=== PATIENT | female | born 1935 | race Caucasian/White ===

== ENCOUNTER 2018-06-20 05:32 | Inpatient (IN) | payer MEDICARE ==
[2018-06-12 15:08] LABS: BASOPHILS % (AUTO) 0.4 % (0-1); EOSINOPHILS # (AUTO) 0.3 X10'3 (0-0.9); EOSINOPHILS % (AUTO) 4.6 % (0-6); LYMPHOCYTES # (AUTO) 1.6 X10'3 (1.1-4.8); LYMPHOCYTES % (AUTO) 25.8 % (21-51); MEAN CORPUSCULAR HEMOGLOBIN 30.9 PG (27.0-31.0); MEAN CORPUSCULAR HGB CONC 32.2 % (33.0-36.5); MEAN PLATELET VOLUME 7.9 FL (7.4-10.4); MONOCYTES # (AUTO) 0.3 X10'3 (0-0.9); MONOCYTES % (AUTO) 4.2 % (2-12); NEUTROPHILS # (AUTO) 4.1 X10'3 (1.8-7.7); PRE OP HEMOGLOBIN 13.2 g/dL (12.0-16.0); PRE OP PLATELET COUNT 280 X10'3 (140-440); RED BLOOD COUNT 4.27 X10'6 (4.20-5.60); RED CELL DISTRIBUTION WIDTH 15.3 % (11.5-14.5)
[2018-06-12 15:39] LABS: ALBUMIN 3.5 G/DL (3.4-5.0); ALBUMIN/GLOBULIN RATIO 0.9 (1.1-1.5); ALKALINE PHOSPHATASE 99 IU/L (46-116); BLOOD UREA NITROGEN 18 MG/DL (7-18); BUN/CREATININE RATIO 16.2 (6.6-38.0); CALCIUM 8.4 MG/DL (8.5-10.1); CHLORIDE 106 MMOL/L (99-107); CREATININE 1.11 MG/DL (0.40-0.90); PRE OP ALT 21 U/L (30-65); PRE OP ANION GAP 8 (8-16); PRE OP AST 17 U/L (10-37); PRE OP BILIRUB, TOTAL 0.4 MG/DL (0.0-1.0); PRE OP GLUCOSE 120 MG/DL (70-104); PRE OP SODIUM 144 MMOL/L (135-145); TOTAL CARBON DIOXIDE 30.2 MMOL/L (24-32); TOTAL PROTEIN 7.2 G/DL (6.4-8.2); eGFR 47 ML/MIN
[2018-06-12 15:40] LABS: PRE OP POTASSIUM 3.1 MMOL/L (3.4-5.1)
[2018-06-20] VITALS (21 sets, daily range): BP systolic 104–139; BP diastolic 66–86
[~2018-06-20] VITALS: Ht 175.3 cm; Wt 104.3 kg
[~2018-06-20 05:32] MED LIST: ALLO300T2 PO; ALPR0.5T8 PO; CITA40TA11 PO; LEVO50TA8 PO; OMEP40CA37 PO; PRAV80TA3 PO; TRAM50TA2 PO; acetaminophen 325mg tablet PO ONE; cefazolin/dext.iso 2gm/100 ML IV ONE; famotidine 20mg tablet PO ONE; gabapentin 300mg capsule PO ONE; metoclopramide 5 mg/ml inj IV ONE; ringers solution, lacted 1,000 ML IV SCH; tranexamic acid inj. 1,000 MG in normal saline 100 ML IV ONE; vancomycin inj 1,500 MG in normal saline 300ml IV soln IV ONE
[2018-06-20] MEDS ORDERED: Thrombin (Bovine) 5,000 unit vial TP ONE (06:44)
[2018-06-20] MEDS ORDERED: vancomycin 1,000mg inj ONE (06:44)
[2018-06-20] MEDS ORDERED: ROPIVAcaine 0.5% (5mg/ml) 30ml vial ONE (07:19)
[2018-06-20] MEDS ORDERED: cloNIDine hcl/PF 100mcg/ml inj ONE (07:19)
[2018-06-20] MEDS ORDERED: fentaNYL/PF 50MCG/1 ML 2ML syringe ONE (07:26)
[2018-06-20] MEDS ORDERED: propofol inj 20 ML IV ONE (07:27)
[2018-06-20] MEDS ORDERED: ondansetron/PF 4mg/2ml inj ONE (07:27)
[2018-06-20] MEDS ORDERED: LIDOcaine 2% (20mg/ml) 5ml vial ONE (07:27)
[2018-06-20] MEDS ORDERED: dexamethasone sod phosphate 4mg/ml inj. ONE (07:27)
[2018-06-20] MEDS ORDERED: midazolam 2 mg/2 ml injection ONE (07:27)
[2018-06-20] MEDS ORDERED: ringers solution, lacted 1,000 ML IV SCH (07:34)
[2018-06-20] MEDS ORDERED: labetalol 20mg/4ml (5mg/ml) syringe IV PRN (07:35)
[2018-06-20] MEDS ORDERED: ondansetron/PF 4mg/2ml inj IV PRN ×2 (07:35→10:45)
[2018-06-20] MEDS ORDERED: hydrALAZINE 20mg/ml inj. IV PRN (07:35)
[2018-06-20] MEDS ORDERED: morphine 4 MG/ML inj SYRINge IV PRN ×2 (07:35)
[2018-06-20] MEDS ORDERED: fentaNYL/PF 50MCG/1 ML 2ML syringe IV PRN ×2 (07:35)
[2018-06-20] MEDS ORDERED: sevoflurane 250ml liquid IH ONE (07:58)
[2018-06-20] MEDS ORDERED: ePHEDrine 50MG/ML INJ. ONE (08:38)
[2018-06-20] MEDS ORDERED: calcium chloride 100 MG/1 ML inj IV ONE (09:52)
[2018-06-20] MEDS ORDERED: albumin (Human) 5% 250ml 250 ML IV ONE (09:53)
[2018-06-20] MEDS ORDERED: morphine 10mg/ml inj. ONE (10:29)
--- NOTE | 2018-06-20 10:40 | NUR ---
[facility] accompanied by Anesthesiologist DR GROSS and report given by Anesthesiologist. PT DROWSY, RIGHT SHOULDER W/DRSG, ICE PACK, SHOULDER WRAP AND SLING, CDI, PT DENIES PAIN, FINGERS PWD, PTS SA02 86%, DR GROSS AWARE, ORDERS TO PLACE ON BIPAP IF SA02 LESS THAN 85%. Addendum: 06/20/18 at 1113 by Aurora Potts RN Amended: Links added.
[2018-06-20] MEDS ORDERED: acetaminophen 325mg tablet PO PRN (10:45)
[2018-06-20] MEDS ORDERED: bisacodyl 10mg suppository rectal RC PRN (10:45)
[2018-06-20] MEDS ORDERED: diphenhydrAMINE 25mg capsule PO PRN ×2 (10:45)
[2018-06-20] MEDS ORDERED: magnesium hydroxide 30ml (MOM) UD suspension PO PRN (10:45)
[2018-06-20] MEDS ORDERED: HYDROmorphone inj. 0.5 MG/0.5 ML DISP.SYRIN IV PRN (10:45)
[2018-06-20] MEDS: ROPIVACAINE HCL/PF PAIN PUMP 400 ML IJ SCH (11:33)
--- NOTE | 2018-06-20 12:20 | NUR ---
Report called to receiving nurse. Transferred PT IN STABLE CONDITION via BED, ON TELE #1 AND 02 TO ROOM 4013B, RECEIVING RN AT BEDSIDE TO RECEIVE PT, BLL, SIDE RAILS UP X 2, CALL LIGHT GIVEN, FRIEND AT BEDSIDE. 2 BAGS OF PT Belongings SENT W/PT TO HER ROOM. Special Issues communicated to receiving nurse. YES. Addendum: 06/20/18 at 1232 by Aurora Potts RN Amended: Links added.
[2018-06-20] MEDS: acetaminophen 325mg tablet PO SCH ×2 (13:31→20:57)
[2018-06-20] MEDS: gabapentin 300mg capsule PO SCH ×2 (13:31→20:55)
[2018-06-20] MEDS ORDERED: tranexamic acid inj. 1,000 MG in normal saline 100ml IV soln 100 ML IV ONE (14:00)
[2018-06-20] MEDS: ceFAZolin 1GM/D5W- ADD-VANTAGE 50 ML IV SCH (15:40)
[2018-06-20] MEDS ORDERED: traMADol 50MG tablet PO PRN (17:10)
[2018-06-20 19:30] LABS: ISTAT CREATININE 1.2 mg/dL (0.6-1.1); ISTAT HGB 12.9 g/dl (12.0-16.0); ISTAT IONIZED CALCIUM 1.16 mmol/L (1.03-1.32); ISTAT K 3.3 mmol/L (3.5-5.1); POC BUN/CREATININE RATIO 13.3 (6.6-38.0)
[2018-06-20] MEDS ORDERED: vancomycin/NS 1 GM ADD-VANTAGE 250 ML IV SCH (20:00)
[2018-06-20] MEDS: sennosides 8.6mg tablet PO SCH (21:00)
[2018-06-21] MEDS: ceFAZolin 1GM/D5W- ADD-VANTAGE 50 ML IV SCH (00:27)
[2018-06-21] MEDS: ALPRAZolam 0.5mg tablet PO SCH ×4 (00:32→23:02)
[2018-06-21 02:00] VITALS: BP 132/85
[2018-06-21] MEDS: acetaminophen 325mg tablet PO SCH ×4 (02:00→19:51)
[2018-06-21 06:00] VITALS: BP 152/82
--- NOTE | 2018-06-21 07:02 | NUR ---
Patient in room ORTHO 4013. I have received report from Vivi CLEMENTE and had the opportunity to ask questions and assume patient care.
[2018-06-21 07:53] LABS: ANION GAP 11 (8-16); CHLORIDE 105 MMOL/L (99-107); POTASSIUM 4.4 MMOL/L (3.5-5.1); SODIUM 141 MMOL/L (135-145); TOTAL CARBON DIOXIDE 24.9 MMOL/L (24-32)
[2018-06-21 07:56] LABS: BASOPHILS % (AUTO) 0.1 % (0-1); EOSINOPHILS # (AUTO) 0.1 X10'3 (0-0.9); EOSINOPHILS % (AUTO) 1.3 % (0-6); HEMATOCRIT 33.3 % (35.0-45.0); LYMPHOCYTES # (AUTO) 0.7 X10'3 (1.1-4.8); LYMPHOCYTES % (AUTO) 7.7 % (21-51); MEAN CORPUSCULAR HEMOGLOBIN 31.8 PG (27.0-31.0); MEAN CORPUSCULAR HGB CONC 32.9 % (33.0-36.5); MEAN CORPUSCULAR VOLUME 96.6 FL (78-98); MEAN PLATELET VOLUME 7.8 FL (7.4-10.4); MONOCYTES # (AUTO) 0.3 X10'3 (0-0.9); MONOCYTES % (AUTO) 2.9 % (2-12); PLATELET COUNT 226 X10'3 (140-440); RED BLOOD COUNT 3.45 X10'6 (4.20-5.60); RED CELL DISTRIBUTION WIDTH 15.5 % (11.5-14.5); WHITE BLOOD COUNT 9.1 X10'3 (4.5-11.0)
[2018-06-21] MEDS: aspirin 325mg tablet PO SCH (08:48)
[2018-06-21] MEDS: allopurinol 300 MG tablet PO SCH (08:49)
[2018-06-21] MEDS: gabapentin 300mg capsule PO SCH ×3 (08:50→19:50)
[2018-06-21] MEDS: pantoprazole 40mg Tablet.DR PO SCH (08:50)
[2018-06-21] MEDS: levoTHYROXINE 25mcg tablet PO SCH (08:51)
[2018-06-21] MEDS: citalopram 20mg tablet PO SCH (08:52)
[2018-06-21] MEDS: atorvastatin 20mg tablet PO SCH (08:52)
[2018-06-21 10:00] VITALS: BP 135/71
--- NOTE | 2018-06-21 13:14 | NUR ---
Increased Q-pump to 14ml/hr, patient was complaining of pain, will continue to monitor
[2018-06-21 14:00] VITALS: BP 134/72
[2018-06-21] MEDS: oxyCODONE IR 5mg (immed. release) tablet PO PRN ×2 (15:39→19:53)
[2018-06-21 18:00] VITALS: BP 157/91
--- NOTE | 2018-06-21 18:17 | NUR ---
Problems reprioritized. Patient report given, questions answered & plan of care reviewed with Ivette CLEMENTE.
--- NOTE | 2018-06-21 18:17 | NUR ---
Patient in room ORTHO 4013B. I have received report from CHYNA QUICK and had the opportunity to ask questions and assume patient care.
[2018-06-21] MEDS: celeCOXIB 100mg capsule PO SCH (19:51)
[2018-06-21] MEDS: sennosides 8.6mg tablet PO SCH (21:00)
--- NOTE | 2018-06-21 21:00 | NUR ---
D/C ON-Q BULB THIS SHIFT. PATIENT TOLERATED WELL. WILL CONTINUE TO MONITOR.
[2018-06-21 21:58] VITALS: BP 137/76
--- NOTE | 2018-06-22 01:35 | NUR ---
I checked the pulse oximetry on patient and it was 83% RA ; the oxygen had become disconnected from the flowmeter. I put the oxygen back on to the flowmeter at 1 liter and it went up to 88%, then I increased to 2 liters and it went up to 90%; so I finally increased the flow meter to 2.5liters oxygen and now she is at 92% spo2.
--- NOTE | 2018-06-22 01:56 | NUR ---
Oxygen saturation still good at 92% 2.5liters oxygen.
[2018-06-22] MEDS: acetaminophen 325mg tablet PO SCH ×2 (02:00→07:14)
--- NOTE | 2018-06-22 06:20 | NUR ---
Problems reprioritized. Patient report given, questions answered & plan of care reviewed with CHYNA Benitez. Addendum: 06/22/18 at 0623 by Ivette Soriano RN Report given to atmospheric technician.
--- NOTE | 2018-06-22 06:42 | NUR ---
Patient in room ORTHO 4013. I have received report from Ivette CLEMENTE and had the opportunity to ask questions and assume patient care.
[2018-06-22 06:45] VITALS: BP 158/93
[2018-06-22] MEDS: ROPIVACAINE HCL/PF PAIN PUMP 400 ML IJ SCH (06:55)
[2018-06-22] MEDS: oxyCODONE IR 5mg (immed. release) tablet PO PRN ×2 (07:14→12:52)
[2018-06-22] MEDS: allopurinol 300 MG tablet PO SCH (07:15)
[2018-06-22] MEDS: levoTHYROXINE 25mcg tablet PO SCH (07:15)
[2018-06-22] MEDS: citalopram 20mg tablet PO SCH (07:15)
[2018-06-22] MEDS: atorvastatin 20mg tablet PO SCH (07:15)
[2018-06-22] MEDS: celeCOXIB 100mg capsule PO SCH (07:15)
[2018-06-22] MEDS: pantoprazole 40mg Tablet.DR PO SCH (07:15)
[2018-06-22] MEDS: ALPRAZolam 0.5mg tablet PO SCH (07:15)
[2018-06-22] MEDS: gabapentin 300mg capsule PO SCH ×2 (07:15→12:49)
[2018-06-22 07:44] LABS: BASOPHILS % (AUTO) 0.3 % (0-1); EOSINOPHILS # (AUTO) 0.2 X10'3 (0-0.9); EOSINOPHILS % (AUTO) 3.5 % (0-6); HEMATOCRIT 30.4 % (35.0-45.0); HEMOGLOBIN 9.7 g/dl (12.0-16.0); LYMPHOCYTES # (AUTO) 1.7 X10'3 (1.1-4.8); MEAN CORPUSCULAR HEMOGLOBIN 30.8 PG (27.0-31.0); MEAN CORPUSCULAR HGB CONC 31.8 % (33.0-36.5); MEAN PLATELET VOLUME 7.8 FL (7.4-10.4); MONOCYTES # (AUTO) 0.3 X10'3 (0-0.9); MONOCYTES % (AUTO) 5.1 % (2-12); NEUTROPHILS # (AUTO) 4.1 X10'3 (1.8-7.7); NEUTROPHILS % (AUTO) 64.1 % (42-75); PLATELET COUNT 188 X10'3 (140-440); RED BLOOD COUNT 3.13 X10'6 (4.20-5.60); RED CELL DISTRIBUTION WIDTH 15.7 % (11.5-14.5); WHITE BLOOD COUNT 6.4 X10'3 (4.5-11.0)
[2018-06-22] MEDS: aspirin 325mg tablet PO SCH (08:05)
[2018-06-22 10:13] VITALS: BP 116/77
[2018-06-22] MEDS ORDERED: acetaminophen 325mg tablet PO PRN (10:45)
--- NOTE | 2018-06-22 15:02 | NUR ---
Patient discharged with all belongings. Discharge paperwork gone over with patient/family. Pt given the opportunity to ask questions. W/C to front lobby. Family to take pt home.
== END 2018-06-22 15:00 | disposition home health service (06) | DRG 483 ==
LOC: PAS IN 05:32 → EDSTATUS 07:30 → ORTHO 4S 12:15
PROVIDERS: ADMIT Orthopaedic Surgery; ATTEND Orthopaedic Surgery
PROC: 3E0T3BZ Introduction of Anesthetic Agent into Peripheral Nerves and Plexi, Percutaneous Approach (ICD-10-PCS; 2018-06-20)
PROC: 0RRJ00Z Replacement of Right Shoulder Joint with Reverse Ball and Socket Synthetic Substitute, Open Approach (ICD-10-PCS; principal; 2018-06-20 08:03)
DX: M19.011 Primary osteoarthritis, right shoulder (principal); D62 Acute posthemorrhagic anemia; I10 Essential (primary) hypertension; K21.9 Gastro-esophageal reflux disease without esophagitis; F32.9 Major depressive disorder, single episode, unspecified; F41.9 Anxiety disorder, unspecified; M10.9 Gout, unspecified; F51.04 Psychophysiologic insomnia; M25.711 Osteophyte, right shoulder; E89.0 Postprocedural hypothyroidism; Z90.710 Acquired absence of both cervix and uterus; Z90.49 Acquired absence of other specified parts of digestive tract; Z85.3 Personal history of malignant neoplasm of breast; Z79.899 Other long term (current) drug therapy
CPT/HCPCS: 36415; 73020; 80047; 80051; 80053; 84443; 85025; 87070; 97110; 97116; 97161; 97530; A4565; A7000; G0378; J0690; J0735; J1100; J2001; J2250; J2270; J2405; J2704; J2765; J2795; J3010; J3370; J7030; J7120; P9045; Q0163

== ENCOUNTER 2022-09-10 13:45 | Emergency (ER) | payer MEDICARE ==
[~2022-09-10] VITALS: Ht 170.2 cm; Wt 104.5 kg
[~2022-09-10 13:45] MED LIST changes: -CITA40TA11 PO; +CITA40TA32 PO; +OMEP40CA21 PO; -OMEP40CA37 PO; -acetaminophen 325mg tablet PO ONE; -cefazolin/dext.iso 2gm/100 ML IV ONE; -famotidine 20mg tablet PO ONE; -gabapentin 300mg capsule PO ONE; -metoclopramide 5 mg/ml inj IV ONE; -ringers solution, lacted 1,000 ML IV SCH; -tranexamic acid inj. 1,000 MG in normal saline 100 ML IV ONE; -vancomycin inj 1,500 MG in normal saline 300ml IV soln IV ONE
[2022-09-10] MEDS ORDERED: aspirin 81mg tab.chew PO ONE (14:00)
[2022-09-10] MEDS ORDERED: nitroGLYCERIN 0.4mg SUBLingual tab SL PRN (14:00)
[2022-09-10 14:17] LABS: BASOPHILS # (AUTO) 0.1 X10'3 (0-0.2); BASOPHILS % (AUTO) 0.6 % (0-1); EOSINOPHILS # (AUTO) 0.2 X10'3 (0-0.9); EOSINOPHILS % (AUTO) 2.3 % (0-6); HEMATOCRIT 32.9 % (35.0-45.0); HEMOGLOBIN 10.6 g/dl (12.0-16.0); LYMPHOCYTES # (AUTO) 1.3 X10'3 (1.1-4.8); LYMPHOCYTES % (AUTO) 15.8 % (21-51); MEAN CORPUSCULAR HEMOGLOBIN 29.2 PG (27.0-31.0); MEAN CORPUSCULAR HGB CONC 32.2 g/dL (33.0-36.5); MEAN CORPUSCULAR VOLUME 90.8 FL (78-98); MEAN PLATELET VOLUME 7.3 FL (7.4-10.4); MONOCYTES # (AUTO) 0.3 X10'3 (0-0.9); MONOCYTES % (AUTO) 3.8 % (2-12); NEUTROPHILS # (AUTO) 6.4 X10'3 (1.8-7.7); NEUTROPHILS % (AUTO) 77.5 % (42-75); PLATELET COUNT 226 X10'3 (140-440); RED BLOOD COUNT 3.63 X10'6 (4.20-5.60); RED CELL DISTRIBUTION WIDTH 16.4 % (11.5-14.5); WHITE BLOOD COUNT 8.2 X10'3 (4.5-11.0)
[2022-09-10 14:32] LABS: ALANINE AMINOTRANSFERASE 10 U/L (12-78); ALBUMIN 3.2 G/DL (3.4-5.0); ALKALINE PHOSPHATASE 58 IU/L (46-116); ANION GAP 8 (8-16); ASPARTATE AMINO TRANSFERASE 15 U/L (10-37); BILIRUBIN,TOTAL 0.4 MG/DL (0.1-1.0); BLOOD UREA NITROGEN 19 MG/DL (7-18); BUN/CREATININE RATIO 16.2 (10.0-20.0); CALCIUM 8.2 MG/DL (8.5-10.1); CHLORIDE 106 MMOL/L (99-107); CREATININE 1.17 MG/DL (0.40-0.90); GLUCOSE 118 MG/DL (70-104); SODIUM 143 MMOL/L (135-145); TOTAL CARBON DIOXIDE 29.2 MMOL/L (24-32); TOTAL PROTEIN 6.3 G/DL (6.4-8.2); eGFR 44 ML/MIN
[2022-09-10 18:18] VITALS: BP 135/79
== END 2022-09-10 18:20 | disposition home or self-care (01) ==
LOC: ER 13:46
DX: R07.9 Chest pain, unspecified (principal); E78.00 Pure hypercholesterolemia, unspecified; E03.9 Hypothyroidism, unspecified; F32.A Depression, unspecified; Z88.0 Allergy status to penicillin; Z88.8 Allergy status to other drugs, medicaments and biological substances; Z79.899 Other long term (current) drug therapy; Z79.1 Long term (current) use of non-steroidal anti-inflammatories (NSAID)
CPT/HCPCS: 36415; 71045; 80053; 83880; 84484; 85025; 93005; 99285